=== PATIENT | male | born 1980 | race Caucasian/White ===

== ENCOUNTER → 2016-10-09 | Outpatient (CLI) | payer OTHER ==
[2016-10-09 08:45] LABS: CH 30.7; CHCM 35.7; HCT 45.9 % (39.0-53.0); HDW 2.44; MCH 30.1 pg (25.0-35.0); MCHC 34.8 g/dL (31.0-37.0); MCV 86.3 fL (80.0-100.0); Mean Platelet Volume 6.9; RBC 5.32 m/uL (4.30-5.90); WBC 7.2 k/uL (3.8-10.6)
== END | disposition home or self-care (01) ==
LOC: LABPAT 07:54
PROVIDERS: ATTEND Anesthesiology
DX: Z01.812 Encounter for preprocedural laboratory examination (principal)
CPT/HCPCS: 85027; 86850; 86870; 86880; 86900; 86901

== ENCOUNTER 2016-10-11 06:11 | Day surgery (SDC) | payer OTHER ==
[2016-10-08 11:40] VITALS: BMI 30.5
[~2016-10-11 06:11] MED LIST: CLINDAMYCIN 900 MG in DEXTROSE 5% IN WATER 50 ML IVPB ONE; DEXAMETHASONE SOD PHOSPHATE 10 MG/ML 1 ML VIAL IV ONE; HEPARIN SODIUM,PORCINE 5,000 UNIT/ML 1 ML VIAL SQ ONE; LACTATED RINGERS 1,000 ML IV SCH; MIDAZOLAM 2 MG/2 ML VIAL IV PRN; ONDANSETRON 4 MG/2 ML VIAL IVP ONE
[2016-10-11] MEDS ORDERED: LIDOCAINE 1% 20 ML VIAL (10MG/ML) FOR IV START INTRADERMA ONE (07:00)
[2016-10-11] MEDS ORDERED: FAMOTIDINE 20 MG/2 ML VIAL IVP ONE (07:03)
[2016-10-11 07:11] LABS: Glucose,Whole Blood 83 mg/dL (75-99)
[2016-10-11] MEDS ORDERED: SUCCINYLCHOLINE CHLORIDE 100 MG/5 ML SYR IV ONE (07:36)
[2016-10-11] MEDS ORDERED: fentaNYL (PF) 50 MCG/ML 2 ML AMP ONE (07:36)
[2016-10-11] MEDS ORDERED: GLYCOPYRROLATE 0.2 MG/ML 2 ML VIAL ONE (07:36)
[2016-10-11] MEDS ORDERED: ROCURONIUM BROMIDE 10 MG/ML 10 ML VIAL IV ONE (07:36)
[2016-10-11] MEDS ORDERED: MIDAZOLAM 2 MG/2 ML VIAL ONE (07:36)
[2016-10-11] MEDS ORDERED: PROPOFOL 10 MG/ML 20 ML VIAL IV ONE (07:36)
[2016-10-11] MEDS ORDERED: NEOSTIGMINE 1 MG/ML 10 ML VIAL ONE (07:36)
[2016-10-11] MEDS ORDERED: LIDOCAINE 1% INJ 10MG/ML (20 ML MDV) ONE (07:36)
[2016-10-11] MEDS ORDERED: HYDROmorphone (PF) 1 MG/ML ONE (07:36)
[2016-10-11] MEDS ORDERED: BUPIVACAIN-EPI 0.25%-1:200,000 30 ML VIAL SQ ONE (08:40)
[2016-10-11] MEDS ORDERED: LACTATED RINGERS 1,000 ML IV ONE (09:57)
[2016-10-11 10:22] VITALS: TEMP 97.9
[2016-10-11] MEDS: HYDROmorphone 1 MG/ML 1 ML SYRINGE IVP PRN ×4 (10:26→10:59)
[2016-10-11] MEDS ORDERED: KETOROLAC 30 MG/ML 1 ML VIAL IVP ONE (10:36)
[2016-10-11] MEDS ORDERED: HYDROcodone/APAP 5-325MG 1 EACH TAB PO ONE (11:37)
[2016-10-11 12:19] VITALS: RESP 16
[2016-10-11 12:45] VITALS: BP 122/71; PULSE 85
--- NOTE | 2016-10-11 13:13 | P.OP ---
Date of Procedure: 10/11/16 Preoperative Diagnosis: Symptomatic ventral hernia Postoperative Diagnosis: Epigastric hernia containing incarcerated preperitoneal fat, umbilical hernia containing incarcerated preperitoneal fat Procedure(s) Performed: Robot-assisted laparoscopic repair of ventral abdominal hernias using mesh Anesthesia: DEBORAH Surgeon: Ricky Xiong Estimated Blood Loss (ml): 22 Pathology: none sent Condition: stable Disposition: PACU Indications for Procedure: Patient had painful swelling in the epigastrium made worse by moving about coughing and lifting weights Operative Findings: 2.4 cm epigastric hernia containing preperitoneal fat that extended upwards with the falciform 0.8 cm umbilical hernia containing preperitoneal fat Description of Procedure: Informed consent was obtained and the patient prior to the operation. Patient identified in the preoperative holding area taken the operating room placed in supine position given general anesthesia with endotracheal intubation. The patient's right arm was tucked. After appropriately positioning the patient the patient was prepped and draped in the usual sterile surgical fashion. Appropriate timeout was called. Patient received 2 g of Ancef for skin prophylaxis and 5000 units of subcu heparin for thromboprophylaxis preoperatively. SCDs were cplaced. Left upper quadrant with a identified and infiltrated with lidocaine small incision was made with the help of 11 blade and then a Veress needle was introduced position of which was checked with the help of the drop test. The abdomen was then insufflated to 15 mmHg. Once that was done, 12 mm port was placed in the left upper quadrant and 2 8 mm ports were placed in the left upper quadrant and left lower quadrant respectively. At this time for laparoscopic scope was removed and the robot was docked with the 12 mm camera and the progress in the left hand and scissors in the right hand were taken.. The hernia was identified . The peritoneum was incised parallel to the hernia and it ran inferiorly towards the umbilicus. This preperitoneal fat was then dissected so as to take off the. Peritoneum and expose the fascia. In doing so we exposed second umbilical hernia. The preperitoneal fat that was incarcerated in the umbilical hernia and this epigastric hernia was reduced with blunt and sharp dissection. Was able reduce and the peritoneal flaps were completed so as to give us a good landing zone the length of the line hernias was measured. Total length was 3.2 cm. To both midline. The superior hernia which was 2.4 cm was at the site of the falciform ligament. The 0.8 cm umbilical hernia was 5 cm inferior to the superior hernia. The decision was made to use a10by 15 ventral light mesh with echo positioning system. After that the fascial defect was closed with a running 0V lock suture. After that the mesh was introduced was elevated up to the abdominal wall using the Wyatt Martinez The Wyatt Martinez. Running 2 0V lock suture was used to stitch the mesh to the abdominal wall. The sutures on the periphery as well as in the center of the mesh to keep it well opposed the anterior abdominal wall Once that was done both needles were removed. The mesh was flat well in placed with good overlap. There is no bleeding. At this time the procedure was terminated. The robot was undocked and its instruments removed. Using the laparoscope the 12 mm port site was closed with a Wyatt Martinez and 0 Vicryl. The ports were removed abdomen was desufflated and the skin was closed with the help of 4-0 Monocryl. Dermabond was applied. The patient tolerated the procedure well there were no complications patient was taken to recovery room in stable condition after extubation.
== END 2016-10-11 12:55 | disposition home or self-care (01) ==
LOC: OR 06:11
PROVIDERS: ATTEND Surgery
DX: K43.6 Other and unspecified ventral hernia with obstruction, without gangrene (principal); K42.0 Umbilical hernia with obstruction, without gangrene; F17.210 Nicotine dependence, cigarettes, uncomplicated; G47.33 Obstructive sleep apnea (adult) (pediatric); Z79.1 Long term (current) use of non-steroidal anti-inflammatories (NSAID); Z88.0 Allergy status to penicillin
CPT/HCPCS: 49653; S2900; 86850; 86870; 86880; 86900; 86901

== ENCOUNTER → 2020-10-06 | Outpatient (CLI) | payer OTHER ==
--- NOTE | 2020-10-06 17:39 | CONS ---
CONSULTATION DATE OF SERVICE: 10/06/2020 This 40-year-old gentleman has been evaluated in [facility] for obstructive sleep apnea-hypopnea syndrome. HISTORY OF PRESENT ILLNESS/SLEEP-WAKE EVALUATION: Patient has a history of obstructive sleep apnea for about 5 years. For all of these years he has been using his CPAP equipment every night. His sleep schedule is from between 11 p.m. and 1 a.m. until 8 or 8:30 a.m. No problems with falling asleep, although he has a TV in the bedroom. While using his CPAP, he does not snore. He wakes up from sleep once. No episodes of nocturia at night. No history of hypnagogic hallucinations, sleep paralysis or cataplexy. [place] Sleepiness Scale today is 3. I checked his CPAP unit. CPAP pressure is 12 cm of water. Usage is 30/30 nights for more than 4 hours with average usage 6.5 hours per night. Mask fitting 100%. Periodic breathing 0%. Apnea-hypopnea index is 5.1. PAST MEDICAL HISTORY: Positive for bronchitis, sinus problems, arthritis, hyperlipidemia. PAST SURGICAL HISTORY: Hernia repair. MEDICATIONS: Fluticasone on p.r.n. basis. SOCIAL HISTORY: Negative for smoking or using alcohol. FAMILY HISTORY: Cancer. REVIEW OF SYSTEMS: Occasional episodes of snoring when using his CPAP. PHYSICAL EXAMINATION: GENERAL: A pleasant patient in no distress. VITAL SIGNS: BP 131/84, HR 89, RR 15, height 6 feet 0 inches, weight 246.6, temperature 98.1, oxygen saturation at room air 97%. HEENT: PERRLA, EOMI. Evaluation of oropharynx showed tongue protrudes midline. Low position of soft palate. Mallampati III. NECK: Supple. No JVD. Thyroid is not palpable. Wide neck; 18 inches in circumference. LUNGS: Clear to percussion and to auscultation. Good air exchange. No wheezing or rhonchi. HEART: S1, S2 regular. No murmurs, gallops or rubs. ABDOMEN: Obese. EXTREMITIES: No clubbing or cyanosis. POWER BARKER OPERATOR: Awake, alert, and oriented X3. Cranial nerves 2 to 7 intact. There is no fasciculation or atrophy. noted. No focal deficits observed. IMPRESSION: 1. Obstructive sleep apnea-hypopnea syndrome for more than 5 years, low position of soft palate, wide neck. The patient demonstrated 100% compliance on treatment with CPAP, benefitting from treatment. Apnea-hypopnea index reading from the machine is borderline. Episodes of snoring while using the machine. 2. Obesity. BMI 33.3. Patient's weight increased over the last 5 years by about 15 pounds. 3. Sinus problems. 4. Hyperlipidemia. 5. History of arthritis. 6. History of bronchitis. PLAN: 1. I adjusted had CPAP pressure in CPAP unit up to 13 cm of water. CPAP unit does not have options for automatic regimen. 2. Patient will continue to use CPAP equipment every night for the whole night. 3. Prescription for all necessary CPAP supplies, including full-face mask, tube, filters. 4. Sleep hygiene with regular time in bed for at least 7-1/2 to 8 hours. 5. Precautions related to driving. No driving if feeling any sleepiness. 6. Follow-up visit in 3 to 4 months to check compliance with treatment and to make any necessary adjustments related to mask fitting, pressure and humidification. 7. Get results of previous sleep studies. Thank you very much for allowing me to participate in the management of your patient. Sincerely, Micheal Stewart MD, PhD, FAASM Diplomat of [employer] [employer] H[employer]icultural Farmer of [facility] [place] MMODL / MARYLOUN: [id number] /
== END | disposition home or self-care (01) ==
LOC: SLEEP 13:55
PROVIDERS: ATTEND Internal Medicine
DX: G47.33 Obstructive sleep apnea (adult) (pediatric) (principal); E78.5 Hyperlipidemia, unspecified; E66.9 Obesity, unspecified; Z68.33 Body mass index [BMI] 33.0-33.9, adult; Z87.39 Personal history of other diseases of the musculoskeletal system and connective tissue; Z87.09 Personal history of other diseases of the respiratory system; Z99.89 Dependence on other enabling machines and devices
CPT/HCPCS: 99211

== ENCOUNTER → 2021-01-26 | Outpatient (CLI) | payer OTHER ==
--- NOTE | 2021-01-26 22:40 | SFUN ---
SLEEP CENTER FOLLOW UP NOTE DATE OF SERVICE: 01/26/2021 40-year-old gentleman has been followed in the Sleep Center for treatment of obstructive sleep apnea-hypopnea syndrome. I saw the patient 3 months ago and at that time, I adjusted his CPAP unit pressure up to 13 cm of water. Patient continued to use his CPAP equipment every night for the whole night, but still wakes up from sleep many times, has episodes of panic attacks. [place] Sleepiness Scale today is 7. I checked CPAP unit. Pressure is 13 cm of water. Usage is 30/30 nights for more than 4 hours, average 7.6 hours per night. Mask fit 100%, but apnea-hypopnea index is 8.9, which is definitely above ideal range. Periodic breathing is 0%. I adjusted the CPAP pressure to 14 cm of water. Machine does not have options for automatic adjustments. MEDICATIONS: Fluticasone, Zoloft 75 mg once a day, hydroxyzine as needed. PHYSICAL EXAMINATION: During physical exam, patient in no distress. VITAL SIGNS: BP 122/84, HR 92, RR 12, height 5 feet 11 inches. Weight 255.2, BMI 35, temperature 97.8, oxygen saturation at room air 97%. HEENT: PERRLA, EOMI, evaluation of oropharynx showed low position of soft palate. Mallampati 3. NECK: Supple, no JVD. Thyroid is not palpable. LUNGS: Clear to percussion and to auscultation. Good air exchange. No wheezing or rhonchi. HEART: S1, S2 regular. No murmurs, gallops, or rubs. ABDOMEN: Soft and nontender. Bowel sounds are present. No organomegaly appreciated. EXTREMITIES: No clubbing or cyanosis. PARTY CHIEF: Awake, alert, and oriented X3. Cranial nerves 2 to 7 intact. There is no fasciculation or atrophy. noted. No focal deficits observed. IMPRESSION: 1. Obstructive sleep apnea-hypopnea syndrome. The patient demonstrated 100% compliance with treatment, but wakes up from sleep with episodes of panic attacks. Apnea-hypopnea index reading from the machine increased to 8.9. 2. Obesity, patient increased his weight about 10 pounds since previous visit. 3. Sinuses problems. 4. Hyperlipidemia. 5. History of arthritis. 6. History of bronchitis. PLAN: 1. I adjusted CPAP unit up to 14 cm of water. 2. We will proceed with CPAP titration for re-evaluation of effective CPAP pressure and for possibly fitting patient with a different mask if necessary. 3. Watching and losing weight. 4. Sleep hygiene with regular time in bed for 7.5 hours. 5. No driving if feeling sleepiness. 6. Follow-up visit after sleep study to discuss results of test and to make any adjustments in the machine and if necessary to get some new supplies. Sincerely, Micheal Stewart MD, PhD, FAASM Diplomat of [employer] [employer] Wort Extractor of [facility] MMODL / IJN: [id number] /
== END ==
LOC: SLEEP 10:30
PROVIDERS: ATTEND Internal Medicine
DX: G47.33 Obstructive sleep apnea (adult) (pediatric) (principal); Z99.81 Dependence on supplemental oxygen; E66.9 Obesity, unspecified; E78.5 Hyperlipidemia, unspecified; F17.200 Nicotine dependence, unspecified, uncomplicated; M19.90 Unspecified osteoarthritis, unspecified site; J34.9 Unspecified disorder of nose and nasal sinuses; Z68.35 Body mass index [BMI] 35.0-35.9, adult; Z87.09 Personal history of other diseases of the respiratory system; Z88.0 Allergy status to penicillin
CPT/HCPCS: 99211